=== PATIENT | female | born 1955 | race Caucasian/White ===

== ENCOUNTER 2016-09-05 17:47 | Emergency (ER) | payer MEDICARE ==
[~2016-09-05] VITALS: Ht 165.1 cm; Wt 126.1 kg
[~2016-09-05 17:47] MED LIST: 'PARAFON FORTE500 M1 PO; ANXIETY RELIEF1 PEL PO; APAP/OXYCODONE1 TA2 PO; CYCLOBENZAPRINE10 MG PO; GLUCOPHAGE500 MG PO; HYDROCODONE BIT1 T11 PO; LIDODERM 5% PATC1 EA T; LISINOPRIL5 MG PO; MEDROL DOSEPAK4 MG PO; METFORMIN HCL500 MG PO; MOTRIN600 MG PO; Motrin,Rufen800 MG PO; NAPROSYN500 MG PO; NEURONTIN300 MG PO; Orphenadrine C100 MG PO; PERCOCET 325 MG1 TA2 PO; PRAVASTATIN SOD20 MG PO; TRAZODONE HCL300 MG PO; TYLENOL W/CODEI1 TA2 PO; VICO10300 PO
[2016-09-05] MEDS ORDERED: FEROSUL325 MG PO (17:53)
[2016-09-05] MEDS ORDERED: MEDROL DOSEPAK4 MG PO (18:29)
[2016-09-05] MEDS ORDERED: CYCLOBENZAPRINE10 MG PO (18:29)
== END 2016-09-05 18:34 | disposition home or self-care (01) ==
LOC: ED 17:47
DX: M54.41 Lumbago with sciatica, right side (principal); F17.200 Nicotine dependence, unspecified, uncomplicated; Z98.84 Bariatric surgery status; Z88.0 Allergy status to penicillin